=== PATIENT | male | born 2005 | race Asian ===

== ENCOUNTER 2023-10-05 17:30 | Emergency (ER) | payer OTHER ==
[2023-10-05 17:42] VITALS: BP 145/85; O2SAT 100
--- NOTE | 2023-10-05 17:55 | ED Physician Documentation ---
PD HPI UPPER EXT INJURY - Stated complaint Stated Complaint: RT HAND SWELLING - Chief complaint Chief Complaint: Ext Problem - History obtained from History obtained from: Patient - Additonal information Additional information: Patient is a 18-year-old male with no significant past medical history pres enting for evaluation of redness, swelling and itchiness to the right hand that he noted this morning at 7:00 when he woke up. He feels that something may have bit or stung him. He did take a dose of Zyrtec today. He has been at work. He feels that there is may be some slight worsening. No fevers.No trauma. Review of Systems Skin: reports: Rash PD PAST MEDICAL HISTORY - Past Medical History Derm: Eczema - Past Surgical History Past Surgical History: No - Present Medications Home Medications: Ambulatory Orders Medication Instructions Recorded Confirmed No Known Home Medications 10/05/23 10/05/23 - Allergies Allergies/Adverse Reactions: Allergies Allergy/AdvReac Type Severity Reaction Status Date / Time No Known Drug Allergies Allergy Verified 11/12/13 07:29 - Social History Does the pt smoke?: No Smoking Status: Never smoker Does the pt drink ETOH?: Yes Does the pt have substance abuse?: No - Immunizations Immunizations are current?: Yes - POLST Patient has POLST: No PD ED PE NORMAL - General General: Alert and oriented X 3, No acute distress, Well developed/nourished - HEENT HEENT: Atraumatic - Neck Neck: Supple, no meningeal sign - Cardiac Cardiac: RRR - Respiratory Respiratory: No respiratory distress, Clear bilaterally - Extremities Extremities: Other (Redness and swelling to the dorsum of the right hand; No warmth, no fluctuance, normal range of motion at all joints, no Lymphangitis) PD ED PE EXPANDED - Extremities DEMETRIA UE/Hands Visual: 1 - swelling (redness) Results - Vitals Vitals: Vital Signs - 24 hr 10/05/23 17:33 Temperature 36.7 C Heart Rate 101 H Respiratory 18 Rate Blood Pressure 145/85 H O2 Saturation 100 Oxygen O2 Source Room air PD Medical Decision Making - ED course ED course: Patient is a 18-year-old presenting for evaluation of redness and swelling to the right hand that is also itchy. Exam and history are more suggestive of an allergic process. History does not support an infection. There is no warmth or abnormal drainage to the wound. No fluctuance. Patient has good range of motion. Will patient use topical steroid cream as well as continue with antihistamines. Patient counseled that he should see improvement with these treatments soon and if he develops worsening should return for reevaluation. Departure - Departure Disposition: 01 Home, Self Care Clinical Impression: Allergic reaction Condition: Stable Instructions: ED Bite Sting Insect Local Allergic React Comments: The redness and swelling on your right hand appears to be a localized reaction to an insect bite or sting. I would recommend you continue with Zyrtec daily as well as Benadryl as needed for itching. I would also recommend using hydrocortisone 1% cream which is available enak-jll-evrdmeq twice a day. Today I would also recommend elevating and icing the hand to see if this helps with the swelling. I would expect to see some improvement by tomorrow.If you see any worsening please return to the emergency department. Forms: PCP List
== END 2023-10-05 18:09 | disposition home or self-care (01) ==
LOC: ED 17:30
DX: T78.49XA Other allergy, initial encounter (principal); X58.XXXA Exposure to other specified factors, initial encounter
CPT/HCPCS: 99281; 99283

== ENCOUNTER 2023-10-29 14:06 | Emergency (ER) | payer OTHER ==
[2023-10-29 14:20] VITALS: O2SAT 100
--- NOTE | 2023-10-29 15:57 | ED Physician Documentation ---
PD HPI UPPER EXT INJURY - Stated complaint Stated Complaint: FALL, LT SHOULDER INJ/COLLAR BONE - Chief complaint Chief Complaint: Trauma Ext - History obtained from History obtained from: Patient - Additonal information Additional information: Otherwise healthy 18-year-old right-handed gentleman was working today. 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 No other injuries. PD PAST MEDICAL HISTORY - Past Medical History Past Medical History: No Cardiovascular: None Respiratory: None Neuro: None Endocrine/Autoimmune: None GI: None : None HEENT: None Psych: None Musculoskeletal: None Derm: None, Eczema - Past Surgical History Past Surgical History: No - Present Medications Home Medications: Ambulatory Orders Medication Instructions Recorded Confirmed HYDROcod/ACETAM 5/325 [[place] 5/325] 1 - 2 tab PO Q6H PRN #7 tablet 10/29/23 - Allergies Allergies/Adverse Reactions: Allergies Allergy/AdvReac Type Severity Reaction Status Date / Time No Known Drug Allergies Allergy Verified 10/29/23 14:11 - Social History Does the pt smoke?: No Smoking Status: Never smoker Does the pt drink ETOH?: Yes Does the pt have substance abuse?: No - Immunizations Immunizations are current?: Yes - POLST Patient has POLST: No PD ED PE NORMAL - Vitals Vital signs reviewed: Yes - General General: Alert and oriented X 3, No acute distress - Extremities Extremities: Other (TTP mid clavicular shaft on the left with limited range of motion of the shoulder. Shoulder itself is nontender.) - Neuro Neuro: Alert and oriented X 3, Normal speech Results - Vitals Vitals: Vital Signs - 24 hr 10/29/23 14:11 Temperature 36.8 C Heart Rate 86 Respiratory 16 Rate Blood Pressure 140/71 H O2 Saturation 100 Oxygen O2 Source Room air - Rads (name of study) Mildly angulated midshaft clavicular fracture on left shoulder x-ray Relevant Findings:: Final report received, EMP independent interpretation of test PD Medical Decision Making - ED course ED course: He has a isolated left clavicular fracture. Placed in a sling and advised on follow-up and gentle range of motion exercises as well as work limitations. Departure - Departure Disposition: 01 Home, Self Care Clinical Impression: Closed left clavicular fracture Qualifiers: Encounter type: initial encounter Clavicle location: shaft Fracture alignment: nondisplaced Qualified Code(s): S42.025A - Nondisplaced fracture of shaft of left clavicle, initial encounter for closed fracture Condition: Good Record reviewed to determine appropriate education?: Yes Instructions: ED Fx Clavicle Follow-Up: [facility] [Provider Group] - Within 1 week Prescriptions: HYDROcod/ACETAM 5/325 [[place] 5/325] 1 - 2 tab PO Q6H PRN #7 tablet PRN Reason: Pain Comments: Wear the sling as needed for comfort. When pain is mild you can take ibuprofen per package instructions. If pain is more severe you can take the prescription pain medication. Follow-up with the orthopedics office, call today for an appointment within a week or so. Return for new or worsening symptoms. I sent your prescriptions electronically [facility] in [place]. I am prescribing a short course of narcotic pain medication for you. These are potentially dangerous and addictive medications that should be used carefully. These medications may constipate you. Take an mwli-hdt-azcxmrf stool softener (docusate) twice daily with plenty of water while taking these medications. If you go 24 hours without a bowel movement, take yxqf-zlc-wxmmovd miralax, per package instructions. Do not drink or drive while taking these medications. If you received narcotic or sedating medications while in the emergency department, do not drive for 24 hours. Store this medication in a safe, secure place and out of reach of children. It is a violation of federal law to give or sell this medication to another person or to use in a manner other than prescribed. The ED will not refill narcotic prescriptions, including prescriptions lost or stolen. To dispose of unwanted medications: 1. [facility] provides a drop box for medication in pill form only (no liquids) 8:00 am to 4:30 p.m. Sunday-Sunday in the lobby of the [facility], [address] [place] [address]. Empty pills into ziplock bag before disposal. Call [phone] for information. 2.[employer] is a free service available to all [facility] residents. Go to [email or web address] Note that many narcotic pain relievers also contain Tylenol/acetaminophen. Please ensure that your total dose of acetaminophen from all sources does not exceed 3 g (3000 mg) per day. Forms: PCP List, Activity restrictions
[2023-10-29] MEDS: HYDROcod/ACETAM 5/325 MG TABLET PO STA (16:06)
[2023-10-29 16:13] VITALS: BP 129/72
--- NOTE | 2023-10-29 16:33 | XRAY Report ---
PROCEDURE: Shoulder 2+V LT INDICATIONS: pain TECHNIQUE: 3 views of the shoulder were acquired. COMPARISON: None. FINDINGS: Bones: Angulated mid shaft clavicular fracture. No other fractures or dislocations. No suspicious stalin ny lesions. Visualized ribs appear intact. Soft tissues: No suspicious soft tissue calcifications. The visualized lungs are within normal limi ts. IMPRESSION: Angulated mid shaft clavicular fracture Reviewed by: Kervin Manuel MD on 10/29/2023 4:32 PM PDT Approved by: Kervin Manuel MD on 10/29/2023 4:32 PM PDT Station ID: [id number]
== END 2023-10-29 16:12 | disposition home or self-care (01) ==
LOC: ED 14:06
DX: S42.025A Nondisplaced fracture of shaft of left clavicle, initial encounter for closed fracture (principal); W01.0XXA Fall on same level from slipping, tripping and stumbling without subsequent striking against object, initial encounter; Y93.02 Activity, running; Y92.219 Unspecified school as the place of occurrence of the external cause
CPT/HCPCS: 73030; 99283; 99284; A9270

== ENCOUNTER 2023-11-10 04:52 | Emergency (ER) | payer OTHER ==
--- NOTE | 2023-11-10 05:04 | ED Physician Documentation ---
PD HPI UPPER EXT INJURY - Stated complaint Stated Complaint: LT SHOULDER PX - Chief complaint Chief Complaint: General - History obtained from History obtained from: Patient - History of Present Illness Location: Left, Clavicle Type of injury: Other (he has had clavicle fracture about 2 weeks ago and was healing with less click and pop. Turned over in bed and had large pop and hurting a lot again.) PD PAST MEDICAL HISTORY - Past Medical History Cardiovascular: None Respiratory: None Neuro: None Endocrine/Autoimmune: None GI: None : None HEENT: None Psych: None Musculoskeletal: None Derm: None, Eczema - Past Surgical History Past Surgical History: No - Present Medications Home Medications: Ambulatory Orders Medication Instructions Recorded Confirmed HYDROcod/ACETAM 5/325 [[place] 5/325] 1 - 2 tab PO Q6H PRN #7 tablet 10/29/23 11/10/23 HYDROcod/ACETAM 5/325 [[place] 5/325] 1 ea PO Q6H PRN #18 tablet 11/10/23 Meloxicam [Mobic] 7.5 mg PO BID 10 Days #30 tablet 11/10/23 - Allergies Allergies/Adverse Reactions: Allergies Allergy/AdvReac Type Severity Reaction Status Date / Time No Known Drug Allergies Allergy Verified 11/10/23 04:56 - Social History Does the pt smoke?: No Smoking Status: Never smoker Does the pt drink ETOH?: Yes Does the pt have substance abuse?: No - Immunizations Immunizations are current?: Yes - POLST Patient has POLST: No PD ED PE NORMAL - Vitals Vital signs reviewed: Yes - General General: Alert and oriented X 3, Well developed/nourished - Cardiac Cardiac: RRR, No murmur - Respiratory Respiratory: Clear bilaterally - Extremities Extremities: No edema, Other (left clavicle shaft with tenderness distal shaft. No tenting nor change in skin.) - Neuro Neuro: No motor deficit, No sensory deficit, Other Results - Vitals Vitals: Oxygen O2 Source Room air PD Medical Decision Making - ED course Complexity details: considered differential (had clavicle fracture about 2 weeks ago and was having less clicking and popping, but rolled over in bed and felt a big pop and sharp pop. ), d/w patient ED course: timing on his fracture healing is such that he would be having early callus formation of bone but not firm yet, so can disrupt it and have the current symptoms of displacement of the ends. I did not see need for reimaging. To give pain meds and NSAIDs. He did say he has been having more pain in shoulder since stopping NSAIDs at direction of his [email or web address] primary care due to concerns of delaying healing (most Orthos are not following that animal model result and still give NSAIDs. Departure - Departure Disposition: 01 Home, Self Care Clinical Impression: Closed left clavicular fracture Qualifiers: Encounter type: subsequent encounter Condition: Stable Record reviewed to determine appropriate education?: Yes Instructions: ED Fx Clavicle Follow-Up: [facility] [Provider Group] Prescriptions: Meloxicam [Mobic] 7.5 mg PO BID 10 Days #30 tablet HYDROcod/ACETAM 5/325 [[place] 5/325] 1 ea PO Q6H PRN #18 tablet PRN Reason: Pain Comments: At this point in time after your injury, there would be early callus formation and the bone ends meaning they are wanting to "Velcro together" but would not be very strong at this point. Sometimes it can come apart again and is likely the pop and increased pain that you experience. The bone healing is still primed to reconnect and stick together again over the next few days or so. Continue with the sling and gentle range of motion of the shoulder so does not get too stiff. Add back some anti-inflammatories and I wrote prescription for 1 called meloxicam which is twice daily so bit easier to use. Continue with the Tylenol/acetaminophen 500 to 650 mg every 4 times a day for the next week or so as well. Add hydrocodone/acetaminophen if needed for worse pain. I understand the basis for why your provider had decided not to use anti- inflammatories as an some animal models it had delayed healing. However in practice it does not seem to have enough consequence in that regard to not use it. It has good benefits with regard to inflammation and reducing pain. [facility]-up with your [facility] or primary care later this week. I sent your prescriptions to your preferred pharmacy. I am prescribing a short course of narcotic pain medication for you. These are potentially dangerous and addictive medications that should be used carefully. These medications may constipate you. Take an mzhm-fcl-nnpaalv stool softener such as docusate twice daily with plenty of water while taking these medications. If you go 24 hours without a bowel movement, take ccwp-xol-lolxwxs MiraLAX, per package instructions. Do not drink or drive while taking these medications. If you received narcotic or sedating medications while in the emergency department do not drive for 24 hours. Store this medication in a safe, secure place and out of reach of children. It is a violation of federal law to give or sell this medication to another person or to use in a manner other than prescribed. The ED will not refill narcotic prescriptions, including prescriptions lost or stolen. You can dispose of unwanted medications at the [facility]'s office or at several pharmacies such as [facility]. Forms: PCP List Discharge Date/Time: 11/10/23 06:05
[2023-11-10 05:20] VITALS: O2SAT 99
[2023-11-10] MEDS: NAPROXEN 250 MG TABLET PO STA (05:49)
[2023-11-10] MEDS: HYDROcod/ACETAM 5/325 MG TABLET PO STA (05:50)
[2023-11-10] MEDS: HYDROcod/ACET 5/325 Prepack 4 PO STA (05:50)
[2023-11-10 06:18] VITALS: BP 126/70
== END 2023-11-10 06:05 | disposition home or self-care (01) ==
LOC: ED 04:52
DX: S42.022D Displaced fracture of shaft of left clavicle, subsequent encounter for fracture with routine healing (principal); X58.XXXD Exposure to other specified factors, subsequent encounter
CPT/HCPCS: 99283; 99284; A9270